=== PATIENT | male | born 1965 | race Caucasian/White ===

== ENCOUNTER 2016-12-07 10:53 | Inpatient (IN) | payer MEDICAID, OTHER ==
[~2016-12-07] VITALS: Ht 172.7 cm; Wt 54.4 kg
[2016-12-07] MEDS ORDERED: SODIUM CHLORIDE 0.9% 1,000 ML IV ONE (12:20)
[2016-12-07] MEDS ORDERED: ASPIRIN 81MG TABLET PO STA (12:20)
[2016-12-07] MEDS ORDERED: NITROGLYCERIN 0.4MG TABLET SL SL PRN (12:30)
[2016-12-07 12:37] LABS: EOSINOPHILS % 6.6 % (0.0-5.0); HEMATOCRIT. 40.4 % (42.0-52.0); HEMOGLOBIN. 13.5 g/dL (14.0-18.0); LYMPHOCYTES % 41.7 % (20.0-50.0); MEAN CORPUSCULAR HEMOGLOBIN 29.3 pg (28.0-32.0); MEAN CORPUSCULAR VOLUME 87.8 fL (80.0-94.0); MEAN PLATELET VOLUME 9.1 fl (7.4-10.4); MONOCYTES % 9.3 % (2.0-8.0); NEUTROPHILS % 41.4 % (40.0-76.0); PLATELET 140 x1000/uL (130-400); RED CELL DISTRIBUTION WIDTH 13.7 % (11.6-14.6)
[2016-12-07 12:44] LABS: D-DIMER 0.42 mg/L FEU (<0.50); PARTIAL THROMBOPLASTIN TIME 27.1 sec (23.4-31.0); PROTHROMBIN TIME 10.7 sec (9.4-11.6)
[2016-12-07 12:45] LABS: CARBON DIOXIDE 28 mEq/L (21-32); CHLORIDE 102 mEq/L (98-107)
[2016-12-07 12:50] LABS: TROPONIN I < 0.02 ng/mL (0.00-0.04)
[2016-12-07 15:50] LABS: *AMPHETAMINES SCREEN URINE NEGATIVE (NEGATIVE); *BARBITURATES SCREEN URINE NEGATIVE (NEGATIVE); *BENZODIAZEPINES SCREEN URINE NEGATIVE (NEGATIVE); *COCAINE SCREEN URINE NEGATIVE (NEGATIVE); CANNABINOID URINE SCREEN PRESUMTIVE POSITIVE (NEGATIVE); METHADONE URINE SCREEN NEGATIVE (NEGATIVE); OPIATES URINE SCREEN NEGATIVE (NEGATIVE); PHENCYCLIDINE URINE SCREEN NEGATIVE (NEGATIVE)
[2016-12-07 18:17] VITALS: BP 138/91
[2016-12-07 20:00] VITALS: BP 115/76
[2016-12-07] MEDS ORDERED: LISINOPRIL 2.5MG TABLET PO SCH (21:00)
[2016-12-07] MEDS ORDERED: ONDANSETRON HCL 4MG/2ML VIAL IV PRN (22:45)
[2016-12-08] MEDS ORDERED: MEGESTROL ACETATE 20MG TABLET PO SCH
[2016-12-08 07:14] LABS: CHLORIDE 105 mEq/L (98-107)
[2016-12-08 07:24] LABS: BASOPHILS % 0.8 % (0.0-2.0); EOSINOPHILS % 7.6 % (0.0-5.0); HEMATOCRIT. 36.4 % (42.0-52.0); HEMOGLOBIN. 12.4 g/dL (14.0-18.0); LYMPHOCYTES % 43.5 % (20.0-50.0); MEAN CORPUSCULAR HEMOGLOBIN 29.7 pg (28.0-32.0); MEAN CORPUSCULAR VOLUME 86.8 fL (80.0-94.0); MEAN PLATELET VOLUME 9.9 fl (7.4-10.4); MONOCYTES % 9.6 % (2.0-8.0); NEUTROPHILS % 38.5 % (40.0-76.0); PLATELET 126 x1000/uL (130-400); RED BLOOD CELL COUNT 4.19 mill/uL (4.7-6.1); RED CELL DISTRIBUTION WIDTH 13.5 % (11.6-14.6)
[2016-12-08 07:30] LABS: CARBON DIOXIDE 24 mEq/L (21-32); CREATINE KINASE 127 IU/L (39-308); CREATINE KINASE MB FRACTION 2.3 ng/mL (0.5-3.6); HDL CHOLESTEROL 39 mg/dL (40-59); LDL CHOLESTEROL 36 mg/dL (5-100); TROPONIN I < 0.02 ng/mL (0.00-0.04)
[2016-12-08] MEDS: METOPROLOL TARTRATE 25MG TABLET PO SCH ×2 (08:56→16:24)
[2016-12-08] MEDS: MEGESTROL ACETATE 400 MG/10 ML UDC PO SCH ×2 (08:58→16:55)
[2016-12-08] MEDS ORDERED: ENOXAPARIN 40MG/0.4ML SYR SUBCUT SCH (09:00)
[2016-12-08] MEDS ORDERED: REGADENOSON 0.4 MG/5 ML IV SCH (09:45)
[2016-12-08] MEDS ORDERED: REGADENOSON 0.4 MG/5 ML IV ONE (10:40)
[2016-12-08 12:00] VITALS: BP 115/52
[2016-12-08] MEDS ORDERED: METO25TA6 PO (12:26)
[2016-12-08] MEDS ORDERED: LISI2.5T47 PO (12:26)
[2016-12-08] MEDS ORDERED: METF500T4 PO (12:26)
[2016-12-08] MEDS ORDERED: AMA1 PO (12:26)
[2016-12-08 14:55] LABS: CLARITY URINE CLEAR (CLEAR); COLOR URINE YELLOW (YELLOW); GLUCOSE URINE 3+ (NEGATIVE); KETONES URINE NEGATIVE (NEGATIVE); LEUKOCYTE ESTERASE URINE NEGATIVE (NEGATIVE); NITRITE URINE NEGATIVE (NEGATIVE); OCCULT BLOOD URINE NEGATIVE (NEGATIVE); PROTEIN URINE NEGATIVE (NEGATIVE); SPECIFIC GRAVITY URINE 1.038 (1.005-1.030); UROBILINOGEN URINE 0.2 E.U./dL (0.2-1.0)
[2016-12-08 16:00] VITALS: BP 120/81
[2016-12-08 16:09] VITALS: BP 120/81
== END 2016-12-08 17:30 | disposition home or self-care (01) | DRG 203 ==
LOC: ER 12:10 → 5EST 13:30 → EDBEDREQ 13:33 → ENRESERV 16:27
PROVIDERS: ADMIT Internal Medicine; ATTEND Internal Medicine
DX: R07.89 Other chest pain (principal); E11.65 Type 2 diabetes mellitus with hyperglycemia; I10 Essential (primary) hypertension; R63.0 Anorexia; F17.200 Nicotine dependence, unspecified, uncomplicated; Z83.3 Family history of diabetes mellitus; Z80.52 Family history of malignant neoplasm of bladder; Z68.1 Body mass index [BMI] 19.9 or less, adult
CPT/HCPCS: 36415; 71010; 78452; 80048; 80053; 80061; 80305; 81001; 82550; 82553; 82962; 83036; 83735; 83880; 84443; 84484; 85025; 85379; 85610; 85730; 87040; 93005; 93017; 93970; 99285; A9500; J1650; J2785; J7030